=== PATIENT | male | born 1955 | race Caucasian/White ===

== ENCOUNTER 2017-12-26 17:57 | Emergency (ER) | payer BC ==
[2017-12-26 18:24] VITALS: BP 140/70
[2017-12-26] MEDS ORDERED: Cephalexin CAP* 500 MG PO ONE (19:44)
--- NOTE | 2017-12-26 19:47 | UC ---
Throat Pain/Nasal Mekhi HPI - HPI Summary HPI Summary: 62 yo male with the abrupt onset of painful right parotid gland over the past 18 -24 hours no URI symptoms his eyes are dry hx lupus - History of Current Complaint Chief Complaint: UCGeneralIllness Stated Complaint: RIGHT SIDED FACIAL SWELLING Time Seen by Provider: 12/26/17 19:33 Hx Obtained From: Patient Onset/Duration: Gradual Onset, Lasting Hours Severity: Moderate Pain Intensity: 6 Pain Scale Used: 0-10 Numeric Cough: None Associated Signs & Symptoms: Positive: Fever - Epiglottits Risk Factors Epiglottis Risk Factors: Negative - Allergies/Home Medications Allergies/Adverse Reactions: Allergies Allergy/AdvReac Type Severity Reaction Status Date / Time No Known Allergies Allergy Verified 12/26/17 18:17 PMH/Surg Hx/FS Hx/Imm Hx Previously Healthy: Yes - lupus Cardiovascular History: Cardiac Disease - Surgical History Surgical History: Yes Surgery Procedure, Year, and Place: Double bypass 2010- told d/t smoking - Family History Known Family History: Positive: Other - pt unsure of parents PMH history . - Social History Alcohol Use: Rare Substance Use Type: None Smoking Status (MU): Former Smoker When Did the Patient Quit Smoking/Using Tobacco: 2010 Review of Systems Constitutional: Negative Skin: Negative Eyes: Negative ENT: Negative Respiratory: Negative Cardiovascular: Negative Gastrointestinal: Negative Genitourinary: Negative Motor: Negative Neurovascular: Negative Musculoskeletal: Negative Neurological: Negative Psychological: Negative Is Patient Immunocompromised?: No All Other Systems Reviewed And Are Negative: Yes Physical Exam Triage Information Reviewed: Yes Appearance: Well-Appearing, No Pain Distress, Well-Nourished Vital Signs: Initial Vital Signs Temp 99.6 F 12/26/17 18:18 Pulse 83 12/26/17 18:18 Resp 18 12/26/17 18:18 BP 140/70 12/26/17 18:18 Pulse Ox 98 12/26/17 18:18 Eyes: Positive: Conjunctiva Inflamed. Negative: Discharge ENT: Positive: Hearing grossly normal, Uvula midline, Other - tense parotid gland swelling. Negative: Nasal congestion, Nasal drainage, Trismus, Muffled voice, Hoarse voice Neck: Positive: Supple, Nontender, No Lymphadenopathy Respiratory: Positive: Lungs clear, Normal breath sounds, No respiratory distress Cardiovascular: Positive: RRR, No Murmur Neurological: Positive: Alert Psychological Exam: Normal Skin Exam: Normal Throat Pain/Nasal Course/Dx - Differential Dx/Diagnosis Provider Diagnoses: right parotid sialadenitis vs sjorgen's syndrome vs other Discharge - Discharge Plan Condition: Stable Disposition: HOME Prescriptions: Cephalexin CAP* [Keflex CAP*] 500 mg PO QID #28 cap Patient Education Materials: Sialoadenitis (ED), Sjogren Syndrome (DC) Referrals: Alvin Howard MD [Primary Care Provider] - 1 Day Additional Instructions: heat
== END 2017-12-26 19:50 | disposition home or self-care (01) ==
LOC: UCCORT 17:57
DX: R22.0 Localized swelling, mass and lump, head (principal); M32.9 Systemic lupus erythematosus, unspecified; I51.9 Heart disease, unspecified; Z95.1 Presence of aortocoronary bypass graft; Z87.891 Personal history of nicotine dependence
CPT/HCPCS: 99212; A9270-GY; G0463

== ENCOUNTER 2018-08-12 08:27 | Emergency (ER) | payer BC ==
[2018-08-12 08:55] VITALS: BP 135/64
[2018-08-12] MEDS ORDERED: Acetaminophen TAB* 325 MG PO ONE (09:02)
[2018-08-12] MEDS ORDERED: Ondansetron ODT TAB* 4 MG PO ONE (09:08)
--- NOTE | 2018-08-12 09:37 | RAD ---
HISTORY: fever COMPARISONS: None VIEWS: 4: Frontal dual-energy and lateral views of the chest. FINDINGS: CARDIOMEDIASTINAL SILHOUETTE: The cardiomediastinal silhouette is normal. TIFFANY: The tiffany are normal. PLEURA: The costophrenic angles are sharp. No pleural abnormalities are noted. LUNG PARENCHYMA: There is confluent alveolar opacification of the left lower lobe. ABDOMEN: The upper abdomen is clear. There is no subphrenic gas. BONES AND SOFT TISSUES: The patient is status post median sternotomy. OTHER: None. IMPRESSION: LEFT LOWER LOBE CONSOLIDATION. RECOMMEND FOLLOW-UP UNTIL RESOLUTION TO EXCLUDE UNDERLYING PULMONARY PARENCHYMAL PATHOLOGY.
--- NOTE | 2018-08-12 09:59 | UC ---
Respiratory Complaint HPI - HPI Summary HPI Summary: fever / chills x 3 days + cough , chest congestion pleuritic chest pain + fatigue , short of breath - History of Current Complaint Chief Complaint: UCGI Stated Complaint: FEVER VOMITING Time Seen by Provider: 08/12/18 08:48 Hx Obtained From: Patient Onset/Duration: Gradual Onset Timing: Constant Severity Initially: Moderate Severity Currently: Severe Pain Intensity: 6 Character: Cough: Nonproductive Aggravating Factors: Exertion, Deep Breaths Alleviating Factors: Nothing Associated Signs And Symptoms: Positive: Dyspnea, Fever, Chills, Pleuritic Chest Pain. Negative: Wheezing, Hemoptysis, Dizziness, Edema, URI, Nasal Congestion - Allergies/Home Medications Allergies/Adverse Reactions: Allergies Allergy/AdvReac Type Severity Reaction Status Date / Time No Known Allergies Allergy Verified 08/12/18 08:42 PMH/Surg Hx/FS Hx/Imm Hx - Additional Past Medical History Additional PMH: lupus Endocrine History: Hypothyroidism Cardiovascular History: Cardiac Disease - Surgical History Surgical History: Yes Surgery Procedure, Year, and Place: Double bypass 2010- told d/t smoking - Family History Known Family History: Positive: Hypertension, Other - pt unsure of parents PMH history . - Social History Alcohol Use: None Substance Use Type: None Smoking Status (MU): Former Smoker When Did the Patient Quit Smoking/Using Tobacco: 2010 Review of Systems Constitutional: Fever, Chills, Fatigue Skin: Negative Eyes: Negative ENT: Negative Respiratory: Shortness Of Breath, Cough Cardiovascular: Negative Is Patient Immunocompromised?: No All Other Systems Reviewed And Are Negative: Yes Physical Exam Triage Information Reviewed: Yes Appearance: Well-Nourished, Ill-Appearing, Pain Distress Vital Signs: Initial Vital Signs Temp 102.4 F 08/12/18 08:44 Pulse 110 08/12/18 08:44 Resp 24 08/12/18 08:44 BP 135/64 08/12/18 08:44 Pulse Ox 99 08/12/18 08:44 Vital Signs Reviewed: Yes Eyes: Positive: Conjunctiva Clear ENT: Positive: Normal ENT inspection, Hearing grossly normal, Pharynx normal Neck exam: Normal Neck: Positive: Supple, Nontender, No Lymphadenopathy Respiratory: Positive: Chest non-tender, No respiratory distress, Crackles - left lower lungs Cardiovascular: Positive: Tachycardia Abdominal Exam: Normal Skin Exam: Normal Diagnostic Evaluation - Laboratory O2 Sat by Pulse Oximetry: 92 Diagnostic Studies Comment: chest xray : IMPRESSION: LEFT LOWER LOBE CONSOLIDATION. RECOMMEND FOLLOW-UP UNTIL RESOLUTION TO EXCLUDE UNDERLYING. PULMONARY PARENCHYMAL PATHOLOGY. Respiratory Course/Dx - Differential Dx/Diagnosis Provider Diagnoses: pneumonia LLL Discharge - Sign-Out/Discharge Documenting (check all that apply): Patient Departure All imaging exams completed and their final reports reviewed: Yes - Discharge Plan Condition: Stable Disposition: HOME Prescriptions: Amoxicillin/Clavulanate TAB* [Augmentin TAB 875*] 875 mg PO BID #20 tab Azithromycin TAB* [Zithromax TAB (Z-ELDA) 250 mg #6 tabs] 2 tab PO .TODAY, THEN 1 DAILY #1 elda Ondansetron [Zofran Odt] 8 mg PO Q8H PRN #9 tab.rapdis PRN Reason: Nausea/Vomiting Patient Education Materials: Pneumonia (ED) Referrals: Alvin Howard MD [Primary Care Provider] - 5 Days - Billing Disposition and Condition Condition: STABLE Disposition: Home
== END 2018-08-12 10:01 | disposition home or self-care (01) ==
LOC: UCCORT 08:27
DX: J18.9 Pneumonia, unspecified organism (principal); Z87.891 Personal history of nicotine dependence
CPT/HCPCS: 71046; 99212; A9270-GY; G0463